=== PATIENT | male | born 1990 | race Two or more races ===

== ENCOUNTER 2021-11-18 13:57 | Inpatient (IN) | payer OTHER ==
[2021-11-18 17:07] VITALS: BMI 21.5
[2021-11-18] MEDS ORDERED: LOPERAMIDE HCL 2 MG CAPSULE PO PRN (17:29)
[2021-11-18] MEDS ORDERED: MAGNESIUM CITRATE 300 ML BOTTLE PO PRN (17:29)
[2021-11-18] MEDS ORDERED: METHOCARBAMOL 500 MG TABLET PO PRN (17:29)
[2021-11-18] MEDS ORDERED: ONDANSETRON *ODT* 4 MG TABLET SL PRN (17:29)
[2021-11-18] MEDS ORDERED: MAGNESIUM HYDROX 2400MG/30ML ORAL SUSPENSION 30 ML CUP PO PRN (17:29)
[2021-11-18] MEDS ORDERED: DICYCLOMINE HCL 10 MG CAPSULE PO PRN (17:29)
[2021-11-18] MEDS ORDERED: MAG HYDROX/AL HYDROX/SIMETH 30 ML UNIT-DOSE CUP PO PRN (17:29)
[2021-11-18] MEDS ORDERED: ACETAMINOPHEN 325 MG TABLET (FP) PO PRN ×2 (17:29)
[2021-11-18] MEDS ORDERED: BENZOCAINE/MENTHOL (CHLORASEPTIC ) LOZENGE MM PRN (17:29)
[2021-11-18] MEDS ORDERED: IBUPROFEN 400 MG TABLET (FP) PO PRN (17:29)
[2021-11-18] MEDS ORDERED: NALOXONE HCL 0.4 MG/ML VIAL IM PRN (17:29)
[2021-11-18] MEDS ORDERED: BISMUTH SUBSALICYLATE 524 MG/30 ML PO PRN (17:29)
[2021-11-18] MEDS ORDERED: IBUPROFEN 600 MG TABLET (FP) PO PRN (17:29)
[2021-11-18] MEDS ORDERED: NICOTINE 10 MG CARTRIDGE (INHALER) IH PRN (17:29)
[2021-11-18] MEDS: hydrOXYzine PAMOATE 25 MG CAPSULE (FP) PO SCH ×2 (19:59→23:14)
[2021-11-18] MEDS ORDERED: THIAMINE HCL 100 MG TABLET (FP) PO SCH (22:00)
[2021-11-18] MEDS ORDERED: MELATONIN 5 MG TABLETS PO SCH (22:00)
[2021-11-19] MEDS: hydrOXYzine PAMOATE 25 MG CAPSULE (FP) PO SCH (05:04)
[2021-11-19] MEDS ORDERED: cloNIDine HCL 0.1 MG TABLET PO ONE (05:07)
[2021-11-19] MEDS ORDERED: PRENATAL VITAMINS W/ FOLIC ACID TABLET (FP) PO SCH (10:00)
[2021-11-19 11:13] LABS: HEMATOCRIT 42.9 % (35.4-49); HEMOGLOBIN 14.7 GM/dL (11.7-16.9); MCH 29.7 pg (25.7-33.7); MCHC 34.3 g/dl (32.0-35.9); MEAN CELL VOLUME 86.6 fl (80-96); MEAN PLT VOLUME 9.7 fl (7.5-11.1); PLATELET COUNT 254 10^3/uL (134-434); RBC 4.95 M/mm3 (4.00-5.60); RDW 12.6 % (11.9-15.9); WHITE BLOOD COUNT 4.7 K/mm3 (4.0-10.0)
[2021-11-19 11:34] VITALS: BP 148/90; PULSE 59; TEMP 98
[2021-11-19 12:19] LABS: CALCIUM 9.7 mg/dL (8.5-10.1)
[2021-11-19 12:20] LABS: ALBUMIN 4.1 g/dl (3.4-5.0); BLOOD UREA NITROGEN 9.6 mg/dL (7-18)
[2021-11-19 12:25] LABS: BILIRUBIN,TOTAL 1.1 mg/dL (0.2-1); TOT PROT 7.2 g/dl (6.4-8.2)
== END 2021-11-19 10:27 | disposition left against medical advice (07) | DRG 770 ==
LOC: YASAS 13:57 → UNDOADMIN 18:19 → Y3N 18:19 → UNDODISIN 11-19 10:27
PROVIDERS: ADMIT Allergy & Immunology; ATTEND Surgery
PROC: HZ2ZZZZ Detoxification Services for Substance Abuse Treatment (ICD-10-PCS; principal; 2021-11-18)
DX: F11.23 Opioid dependence with withdrawal (principal); F14.20 Cocaine dependence, uncomplicated; F17.210 Nicotine dependence, cigarettes, uncomplicated; U07.1 COVID-19; I10 Essential (primary) hypertension
CPT/HCPCS: 36415; 80053; 85027; 86593; 86780; C9803-CS; J0735; U0003; U0005